=== PATIENT | male | born 2000 | race Caucasian/White ===

== ENCOUNTER 2025-05-30 07:54 | Emergency (ER) | payer SELFPAY ==
[2025-05-30 07:55] VITALS: BP 129/84; PULSE 67; RESP 14; TEMP 36.1; O2SAT 98; BMI 21.7
--- NOTE | 2025-05-30 08:06 | EDS_ITS ---
HPI History of Present Illness Chief Complaint: Abd Pain Narrative Narrative: Patient is a 25-year-old male with no known significant past medical history who presented to the emergency department chief complaint of abdominal pain nausea vomiting. States he has been having abdominal pain for months now however he did have some episodes of nausea and vomiting this morning prompting him to come here for further evaluation management. He states that he was seen at an outside facility in the past and had an MRI of his belly and was sent on his way. He states that he has not followed up with a doctor for this and he states that he is not on any medications daily. He states that he is under a lot of stress constantly. Patient did note that his stool was darker but denies any blood thinning medications. Patient's denies any alcohol use, tobacco use, drug use PFSH PFSH Medical History no medical history Home Medications ?Medication ?Instructions ?Recorded ?Last Taken ?Type ondansetron 4 mg disintegrating 4 mg PO Q8H PRN PRN Na usea #10 tabs 04/19/17 Unknown Rx tablet albuterol sulfate 90 mcg/actuation 2 puff inhalation Q 6H PRN PRN 05/30/25 Unknown History aerosol inhaler wheezing dicyclomine 20 mg tablet 20 mg PO TID PRN abdominal p ain 05/30/25 Unknown Rx #30 tabs ondansetron 4 mg disintegrating 4 mg PO Q6H PRN nausea and 05/30/25 Unknown Rx tablet vomiting #20 tabs pantoprazole 40 mg tablet,delayed 40 mg PO DAILY #30 t abs 05/30/25 Unknown Rx release Allergy/AdvReac Type Severity Reaction Status Date / Time No Known Allergies Allergy Verified 05/30/25 07:55 Social History Smoking Status: Never smoker ROS ROS ED ROS Narrative Constitutional: Denies fevers, chills Eyes: Denies double vision blurry vision Cardiovascular: Denies chest pain Respiratory: No shortness of breath Abdomen: Complains of abdominal pain as noted above : Denies urinary symptoms Neurological: Denies numbness, wheeze, tingling Musculoskeletal: Denies back pain Skin: Denies any rashes or lesions EXAM Physical Exam Narrative Exam Narrative: General: Patient is lying in bed rest comfortably did not appear to be in acute distress Head: Atraumatic, Eyes: PERRL bilaterally, EOMI bilaterally, no conjunctival injection noted Neck: Soft, supple, trachea Cardiovascular: Regular rate and rhythm Respiratory: Clear to auscultation bilateral Abdomen: Soft, nondistended, mild tenderness to palpation diffusely throughout his abdomen no rebound or guarding on exam Extremities: +5/5 strength noted in the bilateral lower extremities Neurological: Patient following commands knew that he was at [facility] year is 2024 Skin: Warm, dry, intact no rashes or lesions noted Const Vital Signs: 05/30/25 07:55 Temperature 97 F L Temperature Source Temporal Pulse Rate 67 Respiratory Rate 14 Blood Pressure 129/84 H Blood Pressure Mean 99 Pulse Ox 98 Oxygen Delivery Method Room Air MDM MDM MDM Narrative Medical decision making narrative: Patient is a 25-year-old male who presented to the emergency department with a chief complaint of abdominal pain has been going on for months. On the differential diagnosis includes but not limited to viral gastroenteritis, pancreatitis, peptic ulcer disease, gastritis. Once workup is obtained and reviewed he will be reevaluated. Patient will be given IV fluids, Zofran, Bentyl and GI cocktail and be reevaluated. Patient CBC was reviewed and showed a white blood count of 6.6, he was 14.8, platelet count was 315. Patient sodium was 140, potassium normal 4.2, creatinine was normal at 0.98. Patient AST and ALT were 27 and 26 respectively lipase normal at 19. Patient apparently after taking the GI cocktail had phlegm in the back of his throat and had 1 episode where he spit and noted some blood in this he did not have further episodes of this. Patient's repeat abdominal exam at 10:20 AM remains benign and at this point time do not believe he warrants any further imaging studies. Patient states that he is feeling better after the medications given here in the emergency department and would like to go home. He was advised to follow-up with gastroenterology for which he was given referral to. He was encouraged to take the Protonix as prescribed and use other medications as prescribed. He is encouraged to return with worsening symptoms or concerns. All question concerns answered is discharged home in stable condition. Lab Data Labs: Laboratory Results - last 24 hr 05/30/25 08:12 WBC 6.6 RBC 5.15 Hgb 14.8 Hct 45.5 MCV 88.3 MCH 28.7 MCHC 32.5 RDW Std Deviation 42.6 RDW Coeff of Rose 13.1 Plt Count 315 MPV 8.5 Immature Gran % (Auto) 0.200 Neut % (Auto) 43.2 L Lymph % (Auto) 40.2 [place] % (Auto) 11.3 H Eos % (Auto) 4.5 Baso % (Auto) 0.6 Absolute Neuts (auto) 2.9 Absolute Lymphs (auto) 2.66 Nucleated RBC % 0 Sodium 142 Potassium 4.2 Chloride 105 Carbon Dioxide 28.1 Anion Gap 9 BUN 16 Creatinine 0.98 Estim Creat Clear Calc 107.61 Est GFR (MDRD) Non-Af 111 BUN/Creatinine Ratio 16.7 Glucose 99 Calcium 10.0 Total Bilirubin 0.53 AST 27 ALT 26 Alkaline Phosphatase 64 Total Protein 6.9 Albumin 4.4 Globulin 2.6 Albumin/Globulin Ratio 1.7 Lipase 19 Discharge Plan Triage Chief Complaint: Abd Pain ED Provider: Brando Rm Dx/Rx/DC Orders Clinical Impression: Abdominal pain, Gastritis Prescriptions: New pantoprazole 40 mg tablet,delayed release (DR/EC) 40 mg PO DAILY Qty: 30 1RF dicyclomine 20 mg tablet 20 mg PO TID PRN (Reason: abdominal pain) Qty: 30 0RF ondansetron 4 mg tablet,disintegrating 4 mg PO Q6H PRN (Reason: nausea and vomiting) Qty: 20 0RF No Action ondansetron 4 MG tablet 4 mg PO Q8H PRN PRN (Reason: Nausea) Qty: 10 0RF albuterol sulfate 90 mcg/actuation HFA aerosol inhaler 2 puff INHALATION Q6H PRN PRN (Reason: wheezing) Primary Care Provider: Care Physician,No Primary Referrals: Peña Carter DO [Med Staff - Active Staff, Gastroenterology] Care Physician,No Primary [Primary Care Provider, Medical] Jayda Montgomery, ACTUARIAL MATHEMATICIAN-C [[facility], [facility]] Activity Restrictions/Additional Instructions: Follow-up with the doctors you are referred to. Take prescriptions as prescribed. Your blood work was reassuring here in the emergency department did not show any acute findings. Return with worsening symptoms or any other concerns Print Language: Maltese Disposition Disposition: Home, Self Care
[2025-05-30 08:18] LABS: Hematocrit 45.5 % (40-54); Hemoglobin 14.8 g/dL (13.0-16.5); Immature Granulocytes Count 0.010 X10^3/uL (0.0-0.0); Mean Corp Hgb Conc 32.5 g/dL (32-36); Mean Corpuscular Volume 88.3 fL (80-94); Mean Platelet Vol. 8.5 fl (6.2-12.0); NRBC Flagged by Analyzer 0 % (0-5); Platelet Count 315 K/mm3 (150-450); RBC Distribution Width CV 13.1 % (11.6-14.6); RBC Distribution Width SD 42.6 fl (35.1-43.9); Red Blood Count 5.15 M/mm3 (4.6-6.2); White Blood Count 6.6 K/mm3 (4.4-11.0)
[2025-05-30] MEDS: 0.9% Normal Saline (1000mL) 1,000 ML 999 ML IV (08:35)
[2025-05-30 08:55] LABS: AST(SGOT) 27 U/L (<=37); Alanine Aminotransfer ALT/SGPT 26 U/L (<=46); Albumin, Serum 4.4 g/dL (3.5-5.0); Alkaline Phosphatase 64 U/L (40-129); Anion Gap 9 (5-15); BUN 16 mg/dL (4-19); BUN/Creat Ratio 16.7 RATIO (10-20); Calcium,Total 10.0 mg/dL (7.6-11.0); Carbon Dioxide 28.1 mmol/L (21.0-32.0); Chloride 105 mmol/L (98-108); Estimated Creatinine Clearance 107.61 ml/min (50-250); Globulin 2.6 g/dL (2.2-4.2); Glucose 99 mg/dL (70-99); Lipase 19 U/L (13-75); Potassium 4.2 mmol/L (3.3-5.1)
[2025-05-30] MEDS: Mag /Aluminum/Simeth WCH UDC 30 ML ORAL.SUSP PO (09:22)
[2025-05-30] MEDS: Lidocaine 2% Viscous15 ML UDC 15 ML PO (09:22)
[2025-05-30 10:28] VITALS: BP 133/77; PULSE 76; RESP 18; O2SAT 99
[2025-05-30] MEDS: Pantoprazole Sodium 40 MG in 0.9% Normal Saline (100mL MB+) 100 ML 300 MG IV (10:50)
[2025-05-30 11:17] VITALS: BP 124/71; PULSE 76; RESP 16; TEMP 36.6; O2SAT 98
== END 2025-05-30 11:33 | disposition home or self-care (01) ==
PROVIDERS: Emergency Provider Emergency Medicine; Visit Provider Emergency Medicine
DX: K29.70 Gastritis, unspecified, without bleeding (principal)
CPT/HCPCS: 80053; 83690; 85025; 96361; 96365; 96375; 99282; J2405